=== PATIENT | female | born 1980 | race African-American/Black ===

== ENCOUNTER 2016-11-26 19:19 | Inpatient (IN) | payer MEDICAID ==
[~2016-11-26] VITALS: Ht 157.5 cm; Wt 76.4 kg
[2016-11-26 19:31] VITALS: BP 109/68; PULSE 75; RESP 18
[2016-11-26 19:33] VITALS: Ht 157.5 cm; Wt 76.4 kg
[2016-11-26 19:58] LABS: ADD UMIC YES; URINE BILIRUBIN (Dip) NEGATIVE (NEGATIVE); URINE BLOOD (Dip) TRACE (NEGATIVE); URINE COLOR LT. YELLOW (YELLOW); URINE GLUCOSE (Dip) NEGATIVE (NEGATIVE); URINE KETONES (Dip) NEGATIVE (NEGATIVE); URINE LEUKOCYTE ESTERASE (Dip) NEGATIVE (NEGATIVE); URINE NITRITE (Dip) NEGATIVE (NEGATIVE); URINE TOTAL PROTEIN (Dip) NEGATIVE (NEGATIVE); URINE UROBILINOGEN (Dip) 0.2 E.U./dL (0.1-1.0)
[2016-11-26] MEDS ORDERED: LIDOCAINE 1% (MPF) 30 ML INJ INJ PRN (20:30)
[2016-11-26] MEDS ORDERED: OXYTOCIN 30 UNITS/LR 500 ML IV PRN (20:30)
[2016-11-26] MEDS ORDERED: CARBOPROST 250 MCG INJ IM PRN (20:30)
[2016-11-26] MEDS ORDERED: AMPICILLIN 2 GM/NS (PMX) 100 ML IV ONE (20:30)
[2016-11-26] MEDS ORDERED: ACETAMINOPHEN/CODEINE #3 TAB PO PRN (20:30)
[2016-11-26] MEDS ORDERED: METHYLERGONOVINE 0.2 MG INJ IM PRN (20:30)
[2016-11-26] MEDS ORDERED: MISOPROSTOL 200 MCG TAB PR PRN (20:30)
[2016-11-26] MEDS ORDERED: IBUPROFEN 600 MG TAB PO PRN (20:30)
[2016-11-26] MEDS ORDERED: BUTORPHANOL 2 MG INJ IV PRN (20:30)
[2016-11-26 21:45] LABS: BACTERIA,URINE MODERATE; SQUAMOUS EPITHELIAL CELL,UR FEW; URINE RBCS 0-2 /HPF (0)
[2016-11-26] MEDS: LACTATED RINGER'S 1,000 ML IV SCH (22:03)
[2016-11-26] MEDS: BUTORPHANOL 2 MG INJ IV PRN (22:05)
[2016-11-26 22:44] LABS: ADD SCAN DIFF NO
[2016-11-26 22:48] LABS: BASOPHILS % 0.1 % (0.0-2.0); HEMATOCRIT 41.4 % (37.0-47.0); HEMOGLOBIN 13.8 g/dl (12.0-16.0); LYMPHOCYTES # 2.3 10^3/ul (0.8-2.9); MEAN CORPUSCULAR HEMOGLOBIN 28.3 pg (29.0-33.0); MEAN CORPUSCULAR HGB CONC 33.3 g/dl (32.0-37.0); MEAN PLATELET VOLUME 11.4 fl (7.4-10.4); MONOCYTE # 0.6 10^3/ul (0.3-0.9); MONOCYTES % 5.8 % (0.0-11.0); NEUTROPHIL # 6.6 10^3/ul (1.6-7.5); NEUTROPHILS % 69.8 % (39.0-77.0); PLATELET COUNT 219 10^3/UL (140-415); RED BLOOD COUNT 4.87 10^6/ul (4.20-5.40); RED CELL DISTRIBUTION WIDTH 17.2 % (11.5-14.5); WHITE BLOOD COUNT 9.4 10^3/ul (4.8-10.8)
--- NOTE | 2016-11-26 23:01 | RADRPT ---
PROCEDURE: ULTRASOUND OBSTETRICAL CLINICAL INDICATION: 36-year-old female with contractions for size and date determination . TECHNIQUE: Multiple sonographic images of the pelvis were obtained. The images were reviewed on a PACS workstation. COMPARISON: No prior studies are available for comparison. FINDINGS: The cervix is not well visualized. There is a single viable intrauterine gestation. Cardiac activit y is present with 159 beats per minute. There is a vertex presentation. Measurements were made in or [place] to determine age. The results are as follows: BPD = 9.58 cm, HC = 33.97 cm, AC = 35.16 cm, FL = 7.67 cm. This yields and estimated gestational ag e of approximately 39 weeks 1 day. The estimated date of delivery is December 02, 2016. The EFW = 3689 +/- 553 g (8 lb 2 oz). The GP is 70%. The placenta is fundal. There is no evidence for an abruption or placenta previa. IMPRESSION: 1. Single viable intrauterine gestation of approximately 39 weeks 1 day with vertex presentation. 2. The estimated weight is 3689 +/- 553 g (8 lb 2 oz). The GP is 70%. .Isra Rosas MD, Date Time Electronically viewed and signed by .Isra Rosas MD, MD on 11/26/2016 23:01 .Enrrique/
[2016-11-26 23:06] LABS: INR 0.96; PARTIAL THROMBOPLASTIN TIME 26.1 Sec (25.0-35.0); PROTIME 12.8 Sec (12.2-14.2)
--- NOTE | 2016-11-26 23:08 | TRIAGE ---
OB Triage Datetime Report Generated by CPN: 11/26/2016 23:08 Datetime: 11/26/2016 22:00 Assessment Type: Admission Assessment Vaginal Bleeding: None Maternal Assessment Level of Consciousness: Fully Conscious DTR's/Clonus: DTRs 2+; No Clonus Headache: Denies Blurred Vision: No Respiratory Effort: Unlabored; Regular Rhythm; Equal Expansion Breath Sounds, Left: Clear and Equal Breath Sounds, Right: Clear and Equal Nausea/Vomiting: Denies RUQ Epigastric Pain: Denies Lower Extremities Edema: None Degree: None Upper Extremities Edema: None Degree: None Facial Edema: None Fall Risk Assessment History of Falling: (0) No Secondary Diagnosis: (0) No Ambulatory Aid: (0) Bedrest/Nurse Assist IV Therapy: (20) Yes Gait: (0) Normal/Bedrest/Immobile Mental Status: (0) Oriented to Own Ability Fall Score: 20 Fall Risk Score Definition: No Risk: No action required Labor Evaluation Frequency: 3-8 Duration (sec)2399: 60-90 Quality: Moderate Pattern: Normal: <= 5 Contractions in 10 Minutes Resting Tone [place]: Relaxed Heart Rate FHR Baseline Rate: 140 Variability: Moderate 6-25 bpm Accelerations: 15X15 Decelerations: None Category: Category I Pain Assessment Pain Scale: 7 Pain Presence: Intermittent Pain Type: Contraction Pain Location: Abdomen Pain Goal: 4 Vaginal Exam Dilatation (cms): 3.0 Effacement (%): 80 Station: -2 Membrane Status: Intact Datetime: 11/26/2016 21:21 Stage of : Labor Datetime: 11/26/2016 21:00 Labor Evaluation Frequency: 6 Monitor Mode: External Duration (sec)2399: 60 Quality: Moderate Resting Tone [place]: Relaxed Contraction Comments: PT REPORTS UCS APPROXIMATELY Q6MIN. UCS DIFFICULT TO VISUALIZE ON MONITOR Heart Rate FHR Baseline Rate: 145 Monitor Mode: External US FHR Baseline Changes: No Baseline Change Variability: Moderate 6-25 bpm Accelerations: 15X15 Decelerations: None Category: Category I Comments: MODERATE VARIABILITY WITH PERIODS OF MINIMAL VARIABILITY Datetime: 11/26/2016 20:30 Time of Arrival: 11/26/2016 20:30 EGA: 39.1 Arrived From: TRIAGE Datetime: 11/26/2016 20:22 Vaginal Exam Dilatation (cms): 1.0 Effacement (%): 80 Station: -3 Exam By: CONCHIS Vaginal Bleeding: Scant Cervix, Consistency: Moderate Cervix, Position: Posterior Datetime: 11/26/2016 20:00 Labor Evaluation Frequency: 6.5-7.5 Monitor Mode: External Duration (sec)2399: 50-70 Quality: Moderate Pattern: Normal: <= 5 Contractions in 10 Minutes Resting Tone [place]: Relaxed Heart Rate FHR Baseline Rate: 140 Monitor Mode: External US FHR Baseline Changes: No Baseline Change Variability: Moderate 6-25 bpm Accelerations: 15X15 Decelerations: None Category: Category I Comments: MODERATE VARIABILITY WITH PERIOD OF MINIMAL VARIABILITY Datetime: 11/26/2016 19:38 EGA: 39.1 Datetime: 11/26/2016 19:35 Stage of : OB Triage Assessment Type: Triage Maternal Assessment Level of Consciousness: Fully Conscious DTR's/Clonus: DTRs 2+; No Clonus Headache: Denies Blurred Vision: No Respiratory Effort: Unlabored; Regular Rhythm; Equal Expansion Breath Sounds, Left: Clear and Equal Breath Sounds, Right: Clear and Equal Nausea/Vomiting: Denies RUQ Epigastric Pain: Denies Lower Extremities Edema: None Degree: None Upper Extremities Edema: None Degree: None Facial Edema: None Fall Risk Assessment History of Falling: (0) No Secondary Diagnosis: (0) No Ambulatory Aid: (0) Bedrest/Nurse Assist IV Therapy: (0) No Gait: (0) Normal/Bedrest/Immobile Mental Status: (0) Oriented to Own Ability Fall Score: 0 Fall Risk Score Definition: No Risk: No action required Datetime: 11/26/2016 19:31 Temperature Route: Oral Pain Assessment Pain Scale: 6 Pain Presence: Intermittent Pain Type: Contraction Pain Location: Abdomen Pain Goal: 6 Pain Relief Measures: Comfort Measures Datetime: 11/26/2016 19:27 Vaginal Exam Dilatation (cms): 1.0 Effacement (%): 60 Station: -2 Exam By: MG Vaginal Bleeding: None Datetime: 11/26/2016 19:24 Resting Tone [place]: Relaxed Datetime: 11/26/2016 19:21 Stage of : OB Triage Datetime: 11/26/2016 19:15 Time of Arrival: 11/26/2016 19:15 Arrived By: Wheelchair Arrived From: Emergency Dept Chief Complaint: UCs, LEAKING Movement: Present Contractions: Regular Time Contractions Began: 11/26/2016 07:00 Contractions: q5-10min Rupture of Membranes: Unsure Vaginal Bleeding: None Vaginal Discharge: Present Recent Sexual Intercouse: Denies Abdominal Trauma: Not Applicable Patient Complaints: Contractions Time Provider Notified: 11/26/2016 20:30 Provider Notified: MD DENNIS Initial Plan: OBSERVATION, ROM+, UA
[2016-11-26 23:11] LABS: ALBUMIN 3.5 g/dl (3.3-4.9); ASPARTATE AMINO TRANSFERASE 25 IU/L (15-46); BILIRUBIN,INDIRECT 0.5 mg/dl (0-1.1); BILIRUBIN,TOTAL 0.5 mg/dl (0.2-1.3); BLOOD UREA NITROGEN 7 mg/dl (7-20); CARBON DIOXIDE 24 mmol/L (21-31); CREATININE 0.53 mg/dl (0.44-1.00); GLUCOSE 87 mg/dl (70-220)
[2016-11-26 23:12] LABS: ANION GAP 14 (8-16)
[2016-11-26 23:13] LABS: ALANINE AMINOTRANSFERASE 32 IU/L (13-69); ALKALINE PHOSPHATASE 194 IU/L (42-121); CHLORIDE 104 mmol/L (97-110); POTASSIUM 4.4 mmol/L (3.5-5.1); SODIUM 138 mmol/L (135-144)
[2016-11-27] MEDS: AMPICILLIN 1 GM/NS (PMX) 50 ML IV SCH ×3 (01:58→09:37)
[2016-11-27] MEDS: BUTORPHANOL 2 MG INJ IV PRN (01:58)
[2016-11-27 02:33] LABS: BARBITURATES Negative (NEGATIVE); BENZODIAZEPINES Negative (NEGATIVE)
[2016-11-27 02:34] LABS: COCAINE Negative (NEGATIVE)
[2016-11-27 02:37] LABS: CANNABINOIDS Negative (NEGATIVE); OPIATES Negative (NEGATIVE)
[2016-11-27] MEDS: LACTATED RINGER'S 1,000 ML IV PRN ×2 (03:52→05:39)
[2016-11-27] MEDS ORDERED: FENTAnyl 2MCG/ML-ROPIV 0.2% 100 ML ONE (04:44)
[2016-11-27] MEDS ORDERED: ONDANSETRON 4 MG INJ ONE (05:22)
[2016-11-27] MEDS: LACTATED RINGER'S 1,000 ML IV SCH ×2 (05:48→11:49)
[2016-11-27] MEDS ORDERED: DIPHENHYDRAMINE 50 MG INJ IV PRN ×2 (06:00)
[2016-11-27] MEDS ORDERED: TRIMETHOBENZAMIDE 100 MG/ML VIAL IM PRN (06:00)
[2016-11-27] MEDS ORDERED: MEPERIDINE 25 MG INJ IV PRN (06:00)
[2016-11-27] MEDS ORDERED: ONDANSETRON 4 MG INJ IV PRN ×2 (06:00)
[2016-11-27] MEDS ORDERED: EPHEDrine SULFATE 50 MG/5 ML SYG IV PRN (06:00)
[2016-11-27] MEDS ORDERED: LABETALOL HCL 20MG INJ IV PRN (06:00)
[2016-11-27] MEDS ORDERED: HYDROmorphONE 1 MG/ML SYG IV PRN ×2 (06:00)
[2016-11-27] MEDS ORDERED: FENTAnyl 2MCG/ML-ROPIV 0.2% 100 ML BAG EPI SCH (06:00)
[2016-11-27] MEDS ORDERED: NALOXONE (0.4 MG/ML) INJ IV PRN (06:00)
[2016-11-27] MEDS ORDERED: FENTAnyl 50 MCG/ML VIAL IV PRN ×3 (06:00)
[2016-11-27] MEDS ORDERED: hydrALAzine 20 MG INJ IV PRN (06:00)
[2016-11-27] MEDS ORDERED: HYDROmorphONE (0.2 MG/ML) 10ML SYG IV PRN ×3 (06:00)
[2016-11-27] MEDS ORDERED: OXYTOCIN 30 UNITS/LR 500 ML IV SCH ×3 (07:00)
--- NOTE | 2016-11-27 13:30 | HP ---
Date/Time of Note Date/Time of Note DATE: 11/27/16 TIME: 13:28 OB - History Hx of Present Free Text/Dictation @39+wks GA in labor : 1 Para: 0 Care: Good Care Ultrasounds: Normal mid trimester US Obstetrical Complications: None Medical Complications: None Past Family/Social History * Past Medical, Surgical, Family and Obstetric Histories reviewed from chart. OB Admission Exam Vital Signs Vital Signs Vital Signs Date Time Temp Pulse Resp B/P Pulse Ox O2 Delivery O2 Flow Rate FiO2 11/26/16 19:31 98.2 75 18 109/68 Room Air Physical Exam Abdomen: WNL Extremities: Normal Reflexes: Normal Cervical Dilatation: 1cm Effacement: 75% Station: -1 Membranes: Intact Heart Rate: 140's Accelerations: Accelerations Present Decelerations: No Decelerations Varibility: Moderate Contractions on Admission: < 5 Minutes Apart Last 72 hours Lab Results CBC & BMP 11/26/16 21:50 Liver Function Test 11/26/16 21:50 Alanine Aminotransferase (ALT/SGPT) 32 Albumin 3.5 Alkaline Phosphatase 194 H Aspartate Amino Transf (AST/SGOT) 25 Direct Bilirubin 0.00 Total Protein 7.0 OB Assessment/Plan Reason for admission: observation Plan: Expectant Management MASOOD DENNIS M.D. November 27, 2016 13:29
--- NOTE | 2016-11-27 13:32 | LDN ---
Date/Time of Note Date/Time of Note DATE: 11/27/16 TIME: 13:30 Delivery Summary Weeks of Gestation 39+wks GA Assisted Vaginal Delivery: Vacuum ( bradycarida,One attempt) Episiotomy: Yes Indication for episiotomy Persistent bradycardia Anesthesia type: Epidural Sponge & Needle done & correct: Yes All needle counts correct: Yes Any foreign bodies felt in the: No Problems: Delivery Information Sex Sex: female Apgars 1 Minute: 7 5 Minute: 9 Suctioning Nose & mouth suctioned at [place]: Yes Delee suction performed: Yes Umbilical Cord Umbilical cord with: 3 Vessels Cord presentations: no nuchal cord Mother & Baby Disposition Disposition Mom & Baby to Maternity; Good: Yes Baby to NICU: No MASOOD DENNIS M.D. November 27, 2016 13:32
[2016-11-27 14:30] VITALS: BP 109/59; PULSE 75; RESP 18
[2016-11-27] MEDS ORDERED: SENNA/DOCUSATE NA (8.6MG/50MG) TAB PO PRN (15:00)
[2016-11-27] MEDS ORDERED: LANOLIN 7 GM TUBE TOP PRN (15:00)
[2016-11-27] MEDS ORDERED: METHYLERGONOVINE 0.2 MG INJ IM PRN (15:00)
[2016-11-27] MEDS ORDERED: OXYTOCIN 30 UNITS/LR 500 ML IV PRN (15:00)
[2016-11-27] MEDS ORDERED: MISOPROSTOL 200 MCG TAB PR PRN (15:00)
[2016-11-27] MEDS ORDERED: CARBOPROST 250 MCG INJ IM PRN (15:00)
[2016-11-27] MEDS ORDERED: ZOLPIDEM 5 MG TAB PO PRN (15:00)
[2016-11-27] MEDS: LACTATED RINGER'S 1,000 ML IV* SCH ×2 (15:28→22:52)
[2016-11-27] MEDS: OXYCODONE/ASPIRIN (4.88/325) TAB PO PRN (16:37)
[2016-11-27] MEDS: IBUPROFEN 600 MG TAB PO SCH ×2 (17:32→23:42)
[2016-11-27 19:30] VITALS: BP 109/71; PULSE 71; RESP 18
[2016-11-27] MEDS: SENNA/DOCUSATE NA (8.6MG/50MG) TAB PO SCH (21:08)
[2016-11-27 23:41] VITALS: BP 106/53; PULSE 77; RESP 18
[2016-11-28 05:10] VITALS: BP 88/51; PULSE 80; RESP 20
[2016-11-28] MEDS: IBUPROFEN 600 MG TAB PO SCH ×4 (05:36→23:38)
[2016-11-28 07:04] LABS: ADD SCAN DIFF NO
[2016-11-28 07:07] LABS: BASOPHILS % 0.1 % (0.0-2.0); HEMATOCRIT 31.4 % (37.0-47.0); HEMOGLOBIN 10.2 g/dl (12.0-16.0); LYMPHOCYTES # 2.7 10^3/ul (0.8-2.9); MEAN CORPUSCULAR HEMOGLOBIN 28.3 pg (29.0-33.0); MEAN CORPUSCULAR HGB CONC 32.5 g/dl (32.0-37.0); MEAN PLATELET VOLUME 10.7 fl (7.4-10.4); MONOCYTE # 0.5 10^3/ul (0.3-0.9); MONOCYTES % 6.6 % (0.0-11.0); NEUTROPHIL # 4.4 10^3/ul (1.6-7.5); NEUTROPHILS % 57.9 % (39.0-77.0); PLATELET COUNT 173 10^3/UL (140-415); RED BLOOD COUNT 3.61 10^6/ul (4.20-5.40); RED CELL DISTRIBUTION WIDTH 17.4 % (11.5-14.5); WHITE BLOOD COUNT 7.6 10^3/ul (4.8-10.8)
[2016-11-28 08:26] VITALS: BP 95/61; PULSE 85; RESP 18
[2016-11-28] MEDS: SENNA/DOCUSATE NA (8.6MG/50MG) TAB PO SCH ×2 (08:41→20:44)
[2016-11-28 16:00] VITALS: BP 128/75; PULSE 68; RESP 18
--- NOTE | 2016-11-28 19:05 | QN ---
Documentation Comment PPD#1 is stable afebrile tolerates diet No VB +BM +voids VS stable Gen NAD Abd soft NT ND Genitalia No blood at perinium --->discharge Home tomorrow MASOOD DENNIS M.D. November 28, 2016 19:05
--- NOTE | 2016-11-28 19:06 | DS ---
Date/Time of Note Date/Time of Note DATE: 11/28/16 TIME: 19:05 Discharge Summary Admission/Discharge Info Admit Date/Time November 26, 2016 at 20:30 Discharge Date/Time 11/29/16 Final Diagnosis Labor Patient Condition: Stable Procedures Vaginal delivery Hospital Course Uneventful Primary Care Provider Care Physician No Primary Pending Labs Laboratory Tests Test 11/28/16 06:44 White Blood Count 7.610^3/ul (4.8-10.8) Red Blood Count 3.6110^6/ul (4.20-5.40) Hemoglobin 10.2g/dl (12.0-16.0) Hematocrit 31.4% (37.0-47.0) Mean Corpuscular Volume 87.0fl (82.0-101.0) Mean Corpuscular Hemoglobin 28.3pg (29.0-33.0) Mean Corpuscular Hemoglobin Concent 32.5g/dl (32.0-37.0) Red Cell Distribution Width 17.4% (11.5-14.5) Platelet Count 02090^3/UL (140-415) Mean Platelet Volume 10.7fl (7.4-10.4) Neutrophils % 57.9% (39.0-77.0) Lymphocytes % 35.0% (15.0-51.0) Monocytes % 6.6% (0.0-11.0) Eosinophils % 0.0% (0.0-7.0) Basophils % 0.1% (0.0-2.0) Nucleated Red Blood Cells % 0.0/100WBC (0.0-0.0) Neutrophils # 4.410^3/ul (1.6-7.5) Lymphocytes # 2.710^3/ul (0.8-2.9) Monocytes # 0.510^3/ul (0.3-0.9) Eosinophils # 0.010^3/ul (0.0-0.5) Basophils # 0.010^3/ul (0.0-0.1) Nucleated Red Blood Cells # 0.010^3/ul (0.0-0.0) MASOOD DENNIS M.D. November 28, 2016 19:06
[2016-11-28 20:00] VITALS: BP 108/61; PULSE 71; RESP 18
[2016-11-29 04:00] VITALS: BP 106/67; PULSE 70; RESP 20
[2016-11-29] MEDS: IBUPROFEN 600 MG TAB PO SCH ×2 (05:37→12:11)
[2016-11-29] MEDS: OXYCODONE/ASPIRIN (4.88/325) TAB PO PRN (07:57)
[2016-11-29 08:00] VITALS: BP 100/66; PULSE 71; RESP 18
[2016-11-29] MEDS ORDERED: DIPHTH/TET/ACEL PERTUSS (ADULT) 0.5 ML VIAL IM* ONE (09:00)
[2016-11-29] MEDS: SENNA/DOCUSATE NA (8.6MG/50MG) TAB PO SCH (10:45)
[2016-11-29 13:14] LABS: RUBELLA ANTIBODY - IGG 4.76 index
== END 2016-11-29 18:00 | disposition home or self-care (01) | DRG 775 ==
LOC: OBT 19:19 → L-D 19:20 → OBT 20:30 → L-D 20:30 → PP1 11-27 15:22
PROVIDERS: ADMIT Obstetrics & Gynecology; ATTEND Obstetrics & Gynecology
PROC: 10D07Z6 Extraction of Products of Conception, Vacuum, Via Natural or Artificial Opening (ICD-10-PCS; principal; 2016-11-27)
PROC: 0W8NXZZ Division of Female Perineum, External Approach (ICD-10-PCS; 2016-11-27)
DX: O76 Abnormality in fetal heart rate and rhythm complicating labor and delivery (principal); Z37.0 Single live birth; Z3A.39 39 weeks gestation of pregnancy
CPT/HCPCS: 62319; 76815; 80053; 80307; 81001; 84112; 85025; 85610; 85730; 86592; 86703; 86762; 86900; 86901; 87340; 90715; 99464; G0463; J0290; J0595; J2405; J2590; J3010; J7120